=== PATIENT | female | born 2000 | race Caucasian/White ===

== ENCOUNTER → 2023-10-02 | Outpatient (CLI) | payer OTHER | LOC: M PLAIMG 14:25 | PROVIDERS: ATTEND Student in an Organized Health Care Education/Training Program | DX: N64.3 Galactorrhea not associated with childbirth (principal) ==

== ENCOUNTER 2024-04-25 18:30 | Emergency (ER) | payer OTHER ==
[~2024-04-25] VITALS: Ht 160 cm; Wt 54.5 kg
[2024-04-25] MEDS ORDERED: CETI10CA2 PO (19:30)
[2024-04-25] MEDS ORDERED: FLON1SPR NARES (19:30)
[2024-04-25 19:56] VITALS: BP 119/65; TEMP 97.9; O2SAT 100
== END 2024-04-25 20:02 | disposition home or self-care (01) ==
LOC: M ED 18:30
DX: H65.02 Acute serous otitis media, left ear (principal); Z79.899 Other long term (current) drug therapy

== ENCOUNTER 2024-04-29 18:25 | Emergency (ER) | payer OTHER ==
[~2024-04-29] VITALS: Ht 157.5 cm; Wt 58.7 kg
[~2024-04-29 18:25] MED LIST: CETI10CA2 PO; FLON1SPR NARES
[2024-04-29 20:17] VITALS: BP 132/58; TEMP 98.5; O2SAT 98
== END 2024-04-29 21:34 | disposition home or self-care (01) ==
LOC: M ED 18:25
DX: T19.2XXA Foreign body in vulva and vagina, initial encounter (principal); Z79.899 Other long term (current) drug therapy